=== PATIENT | male | born 1950 | race Caucasian/White ===

== ENCOUNTER 2016-06-15 22:35 | Observation (INO) | payer MEDICARE ==
[2016-06-15 21:21] LABS: BASO % 0.6 % (0-2); EOS % 3.5 % (0-7); EOSINOPHIL ABSOLUTE COUNT 0.2 tho/cmm (0.0-0.7); HCT-HEMATOCRIT 38.3 % (36.0-53.5); HGB-HEMOGLOBIN 12.7 gm/dl (13.5-17.0); IMMATURE GRANULOCYTES ABSOLUTE 0.03 tho/cmm (0-0.03); IMMATURE GRANULOCYTES PERCENT 0.6 % (0-0.3); LYMPH % 23.2 % (20-45); LYMPH ABSOLUTE COUNT 1.2 tho/cmm (0.8-4.5); MCH (MEAN CORPUSCULAR HGB) 29.3 pg (28.0-32.0); MCHC MEAN CORPUSCULAR HGB CONC 33.2 % (32.0-36.0); MCV (MEAN CELL VOLUME) 88.5 fl (82.0-96.0); MEAN PLATELET VOLUME 8.9 cmc (9.4-12.4); MONOCYTE ABSOLUTE COUNT 0.5 tho/cmm (0.0-1.2); NEUTROPHIL ABSOLUTE COUNT 3.2 tho/cmm (1.6-8.0); NEUTROPHIL-AUTOMATED 3.2 tho/cmm (1.6-8.0); NEUTROPHILS % 62.1 % (40-80); PLATELET COUNT 153 tho/cmm (150-450); RED BLOOD COUNT 4.33 mil/cmm (4.40-5.70); RED CELL DISTRIBUTION WIDTH 14.2 % (12.4-16.4); WHITE BLOOD COUNT 5.1 tho/cmm (4.0-10.0)
[2016-06-15 21:29] LABS: ANION GAP 10 mmol/L (0-20); BLOOD UREA NITROGEN 17 mg/dl (6-24); CALCIUM 8.8 mg/dl (8.5-10.5); CARBON DIOXIDE-VENOUS 32 mmol/L (22-32); CHLORIDE 104 mmol/l (96-110); CREATININE 1.13 mg/dl (0.60-1.30); GLUCOSE 106 mg/dL (70-110); POTASSIUM 3.9 mmol/L (3.7-5.1); SODIUM 142 mmol/L (135-145); eGFR VALUE FOR BLACK 79 mL/Min
[~2016-06-15 22:35] MED LIST: ASPIR 8181 M1 PO; ASPIR 8181 MG; ASPIRIN325 M3 PO; BACTRIM DS TAB1 EAC2 PO; BACTRIM DS1 TAB PO; BISCOLAX10 MG PR; CENTRUM SILVER1 EAC7 PO; COLACE100 M1 PO; COLACE100 MG PO; CULTURELLE1 EAC1 PO; FLEET ENEMA133 ML PR; KEFLEX500 M4 PO; LASIX20 MG PO; LASIX40 M1 PO; LASIX40 MG; LASIX40 MG PO; MILK OF MA400 MG/5 M PO; MILK OF MAGNESIA PO; MIRALAX17 G1 PO; MOBIC7.5 M2 PO; MULTIVITAMIN1 TAB PO; NYSTATIN15 G1 TP; PAIN & FEVER325 M1 PO; PERCOCET 5MG/AP1 TAB PO; POTASSIUM CHLO10 ME2 PO; POTASSIUM2.5 MEQ; ROBAXIN-750750 MG PO; TYLENOL TA325 MG/TA2 PO; ULTRAM50 M1 PO; ZAROXOLYN5 MG; ZOFRAN4 M2 PO
[2016-06-15 22:42] LABS: URINE BILIRUBIN NEGATIVE (NEG); URINE BLOOD NEGATIVE (NEG); URINE GLUCOSE (UA) NEGATIVE (NEG); URINE KETONE SMALL (NEG); URINE LEUKOCYTE ESTERASE NEGATIVE (NEG); URINE NITRITE NEGATIVE (NEG); URINE PH 6.5 (5.0-8.0); URINE PROTEIN SMALL (NEG); URINE SPECIFIC GRAVITY 1.015 (1.003-1.030)
[2016-06-15 22:43] LABS: URINE APPEARANCE CLEAR; URINE COLOR DARK YELLOW
[2016-06-15 22:49] LABS: URINE EPITHELIAL CELLS RARE /[HPF] (0-10); URINE RBC RARE /[HPF] (0-5); URINE WBC RARE /[HPF] (0-5)
[2016-06-15 22:50] LABS: URINE AMORPHOUS 1+
[2016-06-17] MEDS ORDERED: BACTRIM DS TAB1 EAC2 PO (18:01)
== END 2016-06-17 18:55 ==
LOC: EDMED 22:35 → EMR2 22:37 → 5WE 23:33
PROVIDERS: Emergency Medicine; ADMIT Specialist
DX: R10.32 Left lower quadrant pain (principal); B36.9 Superficial mycosis, unspecified; I87.2 Venous insufficiency (chronic) (peripheral); M17.9 Osteoarthritis of knee, unspecified; L21.9 Seborrheic dermatitis, unspecified; M54.5 Low back pain; G89.29 Other chronic pain; E66.01 Morbid (severe) obesity due to excess calories; Z68.44 Body mass index [BMI] 60.0-69.9, adult; Z79.82 Long term (current) use of aspirin; Z79.899 Other long term (current) drug therapy; Z88.1 Allergy status to other antibiotic agents; Z90.49 Acquired absence of other specified parts of digestive tract
CPT/HCPCS: G0378; G8978-GP-CJ; G8979-GP-CI; G8980-GP-CJ; G8987-GO-CK; G8988-GO-CK; G8989-GO-CK; J2270; J2543; J3370; J7030